=== PATIENT | male | born 1940 | race Caucasian/White ===

== ENCOUNTER 2020-03-05 12:36 | Outpatient (CLI) | payer MEDICARE, SELFPAY ==
--- NOTE | ~2020-03-05 | DEXA_ITS ---
Bone Density Report Name: Denis Vincent Age: 79 Sex: Male Ethnicity: White Date of : 1940 Indication: height loss; Referring Provider: ROSA LUCIA Study: Bone densitometry was performed. 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 These spine BMD and T score and Z score measurements are not reflective of the patient's true general bone mineral density. Bone Density: Region BMD T-score Z-score Classification AP Spine (L1, L4) 1.251 1.5 2.7 Normal Femoral Neck (Left) 0.812 -0.9 0.7 Normal Total Hip (Left) 1.030 0.0 1.1 Normal Total Hip Bilateral Avg 1.015 -0.1 1.0 Normal Femoral Neck (Right) 0.770 -1.2 0.4 Osteopenia Total Hip (Right) 0.999 -0.2 0.9 Normal World Health Organization criteria for BMD impression classify patients as: Normal (T-score at or above -1.0), Osteopenia (T-score between -1.0 and -2.5), or Osteoporosis (T-score at or below -2.5). 10-year Fracture Risk(1): Major Osteoporotic Fracture 6.6% Hip Fracture 2.2% Reported Risk Factors: [place] (), Neck BMD=0.770, BMI=26.6 (1) FRAX(R) Version 3.08. Fracture probability calculated for an untreated patient. Fracture probability may be lower if the patient has received treatment. Clinical Information Provided by Patient: Patient maximum height was 68 No regular weight bearing exercise Drinks caffeinated beverages Impression: The patient has low bone mass, based on the Right Femoral Neck T-score. The patient has an estimated ten-year risk of hip fracture of 2.2% and an estimated ten-year risk of major fracture of 6.6%, based on the WHO FRAX algorithm. 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 These spine BMD and T score and Z score measurements are not reflective of the patient's true general bone mineral density. Discussion: BONE DENSITY IS LOW AT ONE OR MORE SKELETAL SITES. This patient's lowest T-score is low at one or more skeletal sites. It meets the World Health Organization's (WHO) criteria for ?low bone mass? (T-score between -1.0 and -2.5). The patient's 10-year risk of fracture as calculated by FRAX is less than the threshold where pharmacological therapy is recommended by the National Osteoporosis Foundation (NOF). However, all treatment decisions require clinical judgment and consideration of individual patient factors, including patient preferences, comorbidities, previous drug use, risk factors not captured in the FRAX model (e.g., frailty, falls, vitamin D deficiency, increased bone turnover, interval significant decline in bone density) and possible under or overestima
== END 2020-03-05 12:37 | disposition home or self-care (01) ==
LOC: ANHIMG 12:37
PROVIDERS: PCP Family Medicine; Visit Provider Family Medicine
DX: R29.890 Loss of height (principal); M85.851 Other specified disorders of bone density and structure, right thigh
CPT/HCPCS: 77080

== ENCOUNTER 2022-04-30 12:35 | Outpatient (CLI) | payer MEDICARE, SELFPAY ==
--- NOTE | ~2022-04-30 | MR_ITS ---
EXAMINATION: MR brain/brain stem wo con DATE: 04/30/2022 13:19 INDICATION: Confusion. Dementia. TECHNIQUE: Magnetic resonance imaging (MRI) of the brain and brainstem was performed without intraven ous contrast. COMPARISON: None. FINDINGS: There is no acute infarction or abnormal intracranial mass lesion. The ventricles are steven l in size. There are scattered areas of nonspecific increased T2-weighted signal intensity in the cer ebral white matter. There are scattered foci of old microhemorrhage in the cerebrum. There is decreas ed T2*-weighted signal intensity at the cortex in the parietal occipital regions, consistent with sup erficial siderosis. The ventricles are normal in size. The orbits are normal. The paranasal sinuses a re clear. The mastoid air cells are normal. IMPRESSION: 1. Mild nonspecific cerebral white matter disease, which likely represents chronic small vessel ische lianet disease. 2. 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 Reviewed, dictated and finalized at location A. IMPRESSION: 1. 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 2. Scattered foci of old microhemorrhage in the cerebrum, most likely chronic h ypertensive encephalopathy or amyloid angiopathy.
== END 2022-04-30 12:36 | disposition home or self-care (01) ==
LOC: ANHIMG 12:39
PROVIDERS: PCP Family Medicine; Visit Provider Family Medicine
DX: F02.80 Dementia in other diseases classified elsewhere, unspecified severity, without behavioral disturbance, psychotic disturbance, mood disturbance, and anxiety (principal); G30.9 Alzheimer's disease, unspecified; R41.0 Disorientation, unspecified; R93.0 Abnormal findings on diagnostic imaging of skull and head, not elsewhere classified
CPT/HCPCS: 70551

== ENCOUNTER 2022-07-16 10:34 | Outpatient (CLI) | payer MEDICARE, SELFPAY ==
--- NOTE | 2022-07-16 10:54 | ECHO_ITS ---
Patient Info Name: Denis Vincent Age: 82 years : 1940 Gender: Male Ht: 66 in Wt: 150 lbs BSA: 1.79 m2 HR: 74 bpm BP: 167 / 103 mmHg Technical Quality: Good Exam Date: 07/16/2022 11:00 AM Exam Location: [facility] Patient Status: Outpatient Admit Date: 07/16/2022 Staff Ordering Physician: Davide Reynolds DO Supervisor [employer]: Jorge Batista RDCS, RT Attending Provider: Davide Reynolds DO Referring Physician: Rodolfo BNUDY; Exam Type: CA echo doppler color flow Study Info Indications I35.1 - Nonrheumatic aortic (valve) insufficiency Complete two-dimensional, color flow and Doppler transthoracic echocardiogram is performed. Strain analysis performed. Summary 1. Complete two-dimensional, color flow and Doppler transthoracic echocardiogram is performed. 2. Left ventricular chamber dimension is normal. 3. Ventricular septum is sigmoid shaped. 4. Left ventricular systolic function is normal, estimated at 60-65%. 5. The left ventricular diastolic function is normal. 6. E/e' 9 is minimally elevated. 7. Global longitudinal strain is normal at -17.4%. 8. There is mild aortic valve sclerosis. 9. There is mild to moderate aortic valve regurgitation. 10. The mitral valve has mildly calcified annulus. 11. No pulmonary hypertension, estimated pulmonary arterial systolic pressure is 28 mmHg. 12. There is trace pulmonic regurgitation. Left Ventricle E/e' 9 is minimally elevated. Global longitudinal strain is normal at -17.4%. Ventricular septum is sigmoid shaped. Left ventricular chamber dimension is normal. Left ventricular systolic function is normal, estimated at 60-65%. The left ventricular diastolic function is normal. Right Ventricle Right ventricular systolic function is normal and with normal TAPSE 2.3 cm. Right ventricular chamber dimension is normal. Left Atria Left atrial chamber dimension is normal. Right Atria Right atrial chamber dimension is normal. Aortic Valve The aortic valve is trileaflet. There is mild aortic valve sclerosis. There is no aortic valve stenosis. There is mild to moderate aortic valve regurgitation. Pulmonic Valve There is trace pulmonic regurgitation. Mitral Valve The mitral valve has mildly calcified annulus. There is no mitral valve stenosis. There is no mitral valve regurgitation. Tricuspid Valve There is no tricuspid valve regurgitation. No pulmonary hypertension, estimated pulmonary arterial systolic pressure is 28 mmHg. Pericardium/Pleural There is no pericardial effusion. Inferior Vena Cava Normal inferior vena cava with >50% collapse upon inspiration consistent with normal right atrial pressure, 5 mmHg. Aorta The aortic root size at the sinus of Valsalva is normal. Left Ventricular Outflow Tract Name Value Normal LVOT 2D LVOT Diameter 2.1 cm LVOT Doppler LVOT Peak Gradient 4 mmHg LVOT Mean Gradient 2 mmHg LVOT VTI 20 cm LVOT VTI/AV VTI Ratio 0.8 LVOT Stroke Volume 68 ml
== END 2022-07-16 10:35 | disposition home or self-care (01) ==
LOC: ANHCARD 10:35
PROVIDERS: PCP Family Medicine; Visit Provider Internal Medicine Cardiovascular Disease
DX: I35.1 Nonrheumatic aortic (valve) insufficiency (principal)
CPT/HCPCS: 93306